=== PATIENT | female | born 1970 | race Caucasian/White ===

== ENCOUNTER → 2021-01-28 13:09 | Outpatient (CLI) | payer OTHER, SELFPAY ==
--- NOTE | 2021-01-28 | DI.MG.S_ITS ---
BILATERAL DIGITAL SCREENING MAMMOGRAM 3D/2D WITH CAD: 01/28/2021 CLINICAL: Routine screening. Comparison is made to exams dated: 09/24/2017 mammogram and 06/18/2019 mammogram - [facility]. The tissue of both breasts is heterogeneously dense. This may lower the sensitivity of mammography. Current study was also evaluated with a Computer Aided Detection (CAD) system. No significant masses, calcifications, or other findings are seen in either breast. There has been no significant interval change. IMPRESSION: NEGATIVE There is no mammographic evidence of malignancy. A 1 year screening mammogram is recommended. This exam was interpreted at Station ID: [id number]. NOTE: For mammograms, a report in lay terms will be sent to the patient. Approximately 15% of breast malignancies will not be visualized mammographically. In the management of a palpable breast mass, a negative mammogram must not discourage biopsy of a clinically suspicious lesion. Electronically Signed By: Ramin Cao M.D. at/greg:01/30/2021 07:47:42 letter sent: Normal Exam ACR BI-RADS Category 1: Negative 3341F
== END ==
PROVIDERS: PCP Family Medicine; Referring Provider Family Medicine; Visit Provider Family Medicine
DX: Z12.31 Encounter for screening mammogram for malignant neoplasm of breast (principal)
CPT/HCPCS: 77063; 77067

== ENCOUNTER 2022-10-06 09:59 | Emergency (ER) | payer OTHER, SELFPAY ==
[2022-10-06 10:19] VITALS: BP 131/81; PULSE 79; RESP 20; TEMP 37.1; O2SAT 97; BMI 15.5
--- NOTE | 2022-10-06 10:35 | ED.URI ---
HPI - URI/Sore Throat General Chief Complaint: Upper Respiratory Symptoms Stated Complaint: sore throat x1 day Time Seen by Provider: 10/06/22 10:08 Source: patient and family Mode of arrival: Family Vehicle History of Present Illness HPI Narrative: Patient is a healthy 52-year-old female who presents with sore throat ongoing for 1-2 days. She denies fever chills body aches or cough. No other symptoms Review of Systems Review of Systems Narrative: GENERAL: Denies chills,fever HEENT: See HPI RESPIRATORY: Denies dyspnea, cough, wheezing CARDIOVASCULAR: Denies chest pain, palpitations GASTROINTESTINAL: Denies nausea, vomiting MUSCULOSKELETAL: Denies extremity pain, injury SKIN: No rash, no laceration, no pruritus NEUROLOGIC: Denies weakness, dizziness, headache, numbness 8 point review of systems is negative except for those stated above and HPI Patient History Social History Smoking Status: Never smoker Smoking Status: Never smoker alcohol intake frequency: 0-2 drinks per day Substance Use Type: does not use Exam Initial Vital Signs Initial Vital Signs: Vital Signs Temperature 98.8 F 10/06/22 10:19 Pulse Rate 79 10/06/22 10:19 Respiratory Rate 20 10/06/22 10:19 Blood Pressure 131/81 10/06/22 10:19 Pulse Oximetry 97 10/06/22 10:19 Oxygen Delivery Method 10/06/22 10:19 GENERAL: Alert 52-year-old female and in no acute distress. HEENT: Head atraumatic,EOMI, pupils reactive, face symmetric, moist mucous membranes PHARYNX: Minimally erythematous no uvula deviation no tonsillar exudate no cervical lymphadenopathy CARDIOVASCULAR: Regular rate and rhythm without murmurs, rubs or gallops. RESPIRATORY: Breath sounds equal bilaterally, no wheezes rales or rhonchi. ABDOMEN: Soft, nontender. Normoactive bowel sounds all 4 quadrants. No guarding or rebound. EXTREMITIES: Normal range of motion, no clubbing or edema. Neurovascularly intact NEUROLOGICAL: Alert and oriented x4. SKIN: Warm, dry, no laceration, no petechiae, no rashes or lesions. Course Orders Ordered: ED Orders 10/06/22 10:34 COVID19 -Nasal RAPID/Pre-Proc Stat Vital Signs Vital signs: Vital Signs - 8 hr 10/06/22 10:19 Temperature 98.8 F Pulse Rate 79 Respiratory Rate 20 Blood Pressure 131/81 Pulse Oximetry 97 Oxygen Delivery Method Room Air MDM - URI/Sore Throat Lab Data Labs: Lab Results 10/06/22 Range/Units 10:34 SARS-CoV-2 (PCR) Negative (Negative) Point of Care Testing Rapid Strep A Negative MDM Narrative Medical decision making narrative: The patient overall appears well. Negative strep negative COVID although it still might be early. Supportive care only no further workup indicated at this time. Discharge Plan Departure Patient Disposition: Home Clinical Impression: Upper respiratory infection Instructions: DI for Viral Upper Respiratory Infection -- Adult Activity Restrictions/Additional Instructions: *You have been diagnosed with upper respiratory infection *What to do: Your COVID and strep test are negative. At this time no need for antibiotics. Please monitor for other new or worsening symptoms *Continue to take medications as directed Motrin 600 mg every 6 hours if needed for [id number]-[id number] pain Tylenol 650 mg every 4-6 hours if needed for afay-ei-yyoawnjm pain *Follow up with your primary care provider in 2-3 days or call [phone] *Return to ER if you should have increasing weakness [or] any new, worsening or concerning symptoms Referrals: Raimn Conde MD [Primary Care Provider] - Visit Report Forms: Patient Portal/API
[2022-10-06 11:11] LABS: COVID19 -Nasal RAPID Negative (Negative)
== END 2022-10-06 12:32 | disposition home or self-care (01) ==
PROVIDERS: Emergency Provider Emergency Medicine; PCP Family Medicine
DX: J06.9 Acute upper respiratory infection, unspecified (principal); Z20.822 Contact with and (suspected) exposure to COVID-19
CPT/HCPCS: 87635; 87880; 99282; C9803

== ENCOUNTER 2024-06-10 14:11 | Emergency (ER) | payer OTHER, SELFPAY ==
[2024-06-10 14:15] VITALS: BP 155/92; PULSE 74; RESP 18; TEMP 36.6; O2SAT 100; BMI 20.9
[2024-06-10 14:19] VITALS: BP 155/92; PULSE 71; O2SAT 100
--- NOTE | 2024-06-10 14:28 | ED.DIZZY ---
HPI - Dizziness General Chief Complaint: Dizziness Stated Complaint: Dizzy Time Seen by Provider: 06/10/24 14:13 Source: patient and family Mode of arrival: EMS History of Present Illness HPI Narrative: 53-year-old healthy female presents today with dizziness. She does report that she has had vertigo in the past. In fact she feels a little dizzy and a little short of breath for last couple of weeks. However today she felt like she was going to black out and pass out and she was all alone. This scared her and she called 911. She did not pass out. She did have some tingling in her extremities but no significant weakness. She reports that the dizziness is only when she stands. It sounds as though previous doctor has done an Polly maneuver on her and it has helped. She is also complaining of some shortness of breath worse with exertion. But she denies any fever. She has not had any recent travel. She reports that she is quite active. She is denying any chest pain or palpitations. No other symptoms Related Data Previous Rx's Medication Instructions Recorded meclizine 25 mg tablet 25 mg PO TID PRN dizziness #10 tabs 06/10/24 ondansetron 4 mg disintegrating 4 mg PO Q8H PRN nausea and 06/10/24 tablet vomiting #10 tabs Allergies Allergy/AdvReac Type Severity Reaction Status Date / Time No Known Drug Allergies Allergy Verified 06/10/24 14:21 Patient History Social History Smoking Status: Never smoker Smoking Status: Never smoker alcohol intake frequency: 0-2 drinks per day Substance Use Type: does not use Exam Initial Vital Signs Initial Vital Signs: Vital Signs Temperature 98 F 06/10/24 14:15 Pulse Rate 74 06/10/24 14:15 Respiratory Rate 18 06/10/24 14:15 Blood Pressure 155/92 H 06/10/24 14:15 Pulse Oximetry 100 06/10/24 14:15 Oxygen Delivery Method Room Air 06/10/24 14:15 GENERAL: Alert pleasant 53-year-old female slightly tearful and in no acute distress. HEENT: Head atraumatic,EOMI, pupils reactive, face symmetric, moist mucous membranes CARDIOVASCULAR: Regular rate and rhythm without murmurs, rubs or gallops. RESPIRATORY: Breath sounds equal bilaterally, no wheezes rales or rhonchi. ABDOMEN: Soft, nontender. Normoactive bowel sounds all 4 quadrants. No guarding or rebound. EXTREMITIES: Normal range of motion, no clubbing or edema. Neurovascularly intact NEUROLOGICAL: Alert and oriented x4.Normal gait and speech. Cranial nerves II through XII grossly intact. Good soqesl-qd-tfeo, good glgk-vu-sxis, strength equal bilaterally, no dysarthria or aphasia, sensation in tact to soft touch bilaterally, no visual changes, no facial droop SKIN: Warm, dry, no laceration, no petechiae, no rashes or lesions. Scores NIH Stroke Scale Level of Conciousness: Alert, keenly responsive Ask month/age: Answers both questions correctly. Open/close eyes, close hand: Performs both tasks correctly Best gaze horizontal: Normal Visual montero: No visual loss Facial palsy: Normal symetrical movement Left arm drift: No drift for full 10 sec Right arm drift: No drift for full 10 sec Left leg drift: No drift for full 5 sec Right leg drift: No drift for full 5 sec Limb ataxia: Absent Sensory on face/arms/legs: Normal, no sensory loss Best language: No aphasia, normal Dysarthria: Normal Extinction or inattention: No abnormality Total NIH Stroke scale score: 0 Course Orders Ordered: ED Orders 06/10/24 14:25 Complete Blood Count AUTO DIFF Stat Comprehensive Metabolic Panel Stat D Dimer Stat Lipase Stat Magnesium Stat NT-proBNP (BNP-Adult 18+) Stat PTT Partial Thromboplastin John Stat Prothrombin Time INR Stat Troponin & CK Cardiac Panel Stat 06/10/24 14:29 XR chest 1V Stat EKG-12 Lead Stat Discontinued Medications Sodium Chloride (Normal Saline 0.9%) 1,000 mls @ 1,000 mls/hr IV BOLUS ONE Stop: 06/10/24 15:37 Last Infusion: 06/10/24 15:51 Dose: Infused Documented By: Admin: 06/10/24 14:45 Dose: 1,000 mls/hr Documented By: BS Meclizine HCl (Meclizine Hcl 12.5 Mg Tablet) 25 mg PO NOW ONE Stop: 06/10/24 14:39 Last Admin: 06/10/24 14:45 Dose: 25 mg Documented By: NIA Vital Signs Vital signs: Vital Signs - 8 hr 06/10/24 14:15 06/10/24 14:19 06/10/24 14:19 Temperature 98 F Pulse Rate 74 71 Respiratory Rate 18 Blood Pressure 155/92 H 155/92 H Pulse Oximetry 100 100 Oxygen Delivery Method Room Air 06/10/24 14:30 06/10/24 14:30 06/10/24 15:00 Temperature Pulse Rate 70 Respiratory Rate Blood Pressure 141/78 H 144/95 H Pulse Oximetry 99 Oxygen Delivery Method 06/10/24 15:00 06/10/24 15:13 06/10/24 15:13 Temperature Pulse Rate 74 68 Respiratory Rate Blood Pressure 144/87 H Pulse Oximetry 99 98 Oxygen Delivery Method 06/10/24 15:30 Temperature Pulse Rate 72 Respiratory Rate Blood Pressure Pulse Oximetry 98 Oxygen Delivery Method MDM - Dizziness Lab Data 06/10/24 14:25 06/10/24 14:25 Labs: Lab Results 06/10/24 Range/Units 14:25 WBC 5.6 (4.5-11.0) X10^3/uL RBC 4.04 (4.0-5.2) X10^6/uL Hgb 12.4 (12.0-16.0) g/dL Hct 36.5 (36-46) % MCV 90.5 (80-100) fL MCH 30.8 (26-34) PG MCHC 34.0 (30-36) % RDW 12.0 (11.6-14.8) % Plt Count 197 (150-400) X10^3/uL Neut % (Auto) 54.7 (50-75) % Lymph % (Auto) 34.8 (25-40) % [place] % (Auto) 6.8 (3-14) % Eos % (Auto) 2.5 (2-4) % Baso % (Auto) 1.2 (0-2) % Neut # (Auto) 3000 (2578-2735) /uL Lymph # (Auto) 1900 (1322-1999) /uL [place] # (Auto) 400 (0-900) /uL Eos # (Auto) 100 (0-450) /uL Baso # (Auto) 100 (0-100) /uL PT 10.0 (9.4-12.5) SECONDS INR 0.9 (0.9-1.3) APTT 39 H (25.1-36.5) SECONDS D-Dimer < 215 (<500) ng/ml Sodium 140 (137-145) mmol/L Potassium 3.8 (3.4-5.1) mmol/L Chloride 109 H (98-107) mmol/L Carbon Dioxide 22 (22-32) mmol/L BUN 17 (7-17) mg/dL Creatinine 0.77 (0.52-1.04) mg/dL Estimated GFR > 60 (>60) mL/min BUN/Creatinine Ratio 22.1 H (6-22) Glucose 122 H (70-100) mg/dL Calcium 9.3 (8.4-10.2) mg/dL Magnesium 2.1 (1.6-2.3) mg/dL Total Bilirubin 0.4 (0.2-1.3) mg/dL AST 54 H (14-36) IU/L ALT 74 H (<35) IU/L Alkaline Phosphatase 120 (38-126) U/L Total Creatine Kinase 87 (30-135) U/L Troponin I < 0.012 (0.01-0.034) ng/mL NT-Pro-B Natriuret Pep 45 (<125) pg/mL Total Protein 7.9 (6.3-8.2) g/dL Albumin 4.9 (3.5-5.0) g/dL Globulin 3.0 (1.7-4.1) g/dL Albumin/Globulin Ratio 1.6 (1.0-2.8) Lipase 190 (23-300) U/L Urine Dip Bedside Urine Glucose Negative Bedside Urine Bilirubin - Negative Bedside Urine Ketone - Negative Urine Specific Helper 1.015 Bedside Urine Occult Blood - Negative Bedside Urine pH 6.0 Bedside Urine Protein - Negative Bedside Urine Urobilinogen - Negative Bedside Urine Nitrite - Negative Bedside Urine Leukocytes - Negative Esterase Imaging Data Chest x-ray: Radiologist's Impression: PROCEDURE: XR CHEST 1V INDICATIONS: chest pain TECHNIQUE: One view of the chest was acquired. COMPARISON: None. FINDINGS: Surgical changes and devices: None. Lungs and pleura: Lungs are clear. No pleural effusions or pneumothorax. Mediastinum: Mediastinal contours appear normal. Heart size is normal. Bones and chest wall: No suspicious bony lesions. Overlying soft tissues appear unremarkable. IMPRESSION: No acute cardiopulmonary pathology. Dictated by: Aguilar Peoples M.D. on 06/10/2024 at 14:49 Approved by: Aguilar Peoples M.D. on 06/10/2024 at 14:49 ECG Data Attestation: I personally reviewed and interpreted this ECG as follows: Interpretation: Sinus rhythm rate 75 IL interval 156 QRS [address] changes MDM Narrative Medical decision making narrative: Patient 53-year-old female history of vertigo presents today with vertigo and almost syncopal episode. She has been having vertigo ongoing for the last 2 weeks worse today. Previous Polly maneuver has work. However sitting here upright she has no problems no nausea or vomiting. 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 She has no focal deficits or weakness. Blood work has been reviewed overall reassuring BNP is negative D-dimer is negative EKG reviewed as above Chest x-ray has been reviewed no acute cardiopulmonary process Patient overall appears comfortable here in the ED. She is able to sit up she ambulated to the restroom. She has a history of vertigo I suspect vertigo again. She was given meclizine in his overall feeling better. She was having some shortness of breath but no evidence of pneumonia or infection on chest x-ray. BNP and D-dimer negative. Possible viral syndrome but she denies having a fever or cough. At this time no need for antibiotics. She has feeling a bit better. Discussion of strict return precautions and family in room YEARS Algorithm for Pulmonary Embolism (PE) from [employer] on 06/10/2024 All calculations should be rechecked by clinician prior to use RESULT SUMMARY: PE excluded YEARS algorithm rules out PE (0.43% with symptomatic VTE during 3-month follow-up) INPUTS: patient ?> 0 = No Clinical signs of DVT ?> 0 = No Hemoptysis ?> 0 = No PE most likely diagnosis ?> 0 = No D-dimer >=,000 ng/mL ?> 0 = No Discharge Plan Departure Patient Disposition: Home Clinical Impression: Vertigo Instructions: DI for Vertigo Activity Restrictions/Additional Instructions: *You have been diagnosed with vertigo *What to do: At this time increase activity as tolerated stay hydrated *Continue to take medications as directed Meclizine 25 mg every 8 hours if needed for dizziness Zofran 4 mg every 8 hours if needed for nausea or vomiting *Follow up with your primary care provider in 2-3 days or call [phone] *Return to ER if you should have increasing dizziness lightheadedness or weakness or any new, worsening or concerning symptoms Prescriptions: New meclizine 25 mg tablet 25 mg PO TID PRN (Reason: dizziness) Qty: 10 0RF ondansetron 4 mg tablet,disintegrating 4 mg PO Q8H PRN (Reason: nausea and vomiting) Qty: 10 0RF Referrals: Ramin Conde MD [Primary Care Provider] - Stand Alone Forms: Patient Portal/API
[2024-06-10 14:30] VITALS: BP 141/78; PULSE 70; O2SAT 99
--- NOTE | 2024-06-10 14:34 | EKG_ITS ---
[address] [address] Test Date: 2024-06-10 Pat Name: Magdalena Beasley Department: Room: Gender: Female [facility] Worker: FREID : [id number] Requested By: Order Number: [id number] Reading MD: Sukumar Andrade MD Measurements Intervals [place] Rate: 75 P: 50 UT: 156 QRS: -57 QRSD: 96 T: 39 QT: 418 QTc: 466 Interpretive Statements Normal sinus rhythm Left axis deviation Incomplete right bundle branch block NO PRIOR TRACING Electronically Signed On 06-11-2024 7:53:01 PDT by Sukumar Andrade MD
[2024-06-10 14:40] LABS: Add Manual Diff / Slide Review NO; Basophils Absolute Auto 100 /uL (0-100); Basophils Percent Auto 1.2 % (0-2); Eosinophils Absolute Auto 100 /uL (0-450); Eosinophils Percent Auto 2.5 % (2-4); Hematocrit 36.5 % (36-46); Hemoglobin 12.4 g/dL (12.0-16.0); Lymphocytes Absolute Auto 1900 /uL (1100-4500); Lymphocytes Percent Auto 34.8 % (25-40); Mean Corpuscular Hemoglobin 30.8 PG (26-34); Mean Corpuscular Volume 90.5 fL (80-100); Monocytes Absolute Auto 400 /uL (0-900); Monocytes Percent Auto 6.8 % (3-14); Neutrophils Absolute Auto 3000 /uL (1500-7000); Neutrophils Percent Auto 54.7 % (50-75); Platelet Count 197 X10^3/uL (150-400); Red Blood Cell Count 4.04 X10^6/uL (4.0-5.2); White Blood Cell Count 5.6 X10^3/uL (4.5-11.0)
[2024-06-10 14:42] LABS: INR 0.9 (0.9-1.3)
[2024-06-10 14:44] LABS: PTT Partial Thromboplastin Tim 39 SECONDS (25.1-36.5)
[2024-06-10] MEDS: SODIUM CHLORIDE 0.9% 1,000 ML 1000 ML IV (14:45)
[2024-06-10] MEDS: MECLIZINE HCL 12.5 MG TABLET 25 MG PO (14:45)
[2024-06-10 14:47] LABS: Alanine Aminotransferase 74 IU/L (<35); Albumin 4.9 g/dL (3.5-5.0); Albumin Globulin Ratio 1.6 (1.0-2.8); Alkaline Phosphatase 120 U/L (38-126); Aspartate Aminotransferase 54 IU/L (14-36); BUN Creatinine Ratio 22.1 (6-22); Bilirubin Total 0.4 mg/dL (0.2-1.3); Blood Urea Nitrogen 17 mg/dL (7-17); Calcium 9.3 mg/dL (8.4-10.2); Carbon Dioxide 22 mmol/L (22-32); Chloride 109 mmol/L (98-107); Creatine Kinase 87 U/L (30-135); Estimated Glomerular Filt Rate > 60 mL/min (>60); Glucose 122 mg/dL (70-100); HEMOLYSIS < 15 (0-50); Lipase 190 U/L (23-300); Magnesium 2.1 mg/dL (1.6-2.3); Potassium 3.8 mmol/L (3.4-5.1); Sodium 140 mmol/L (137-145); Total Protein 7.9 g/dL (6.3-8.2)
[2024-06-10 14:58] LABS: NT-proBNP (BNP-Adult 18+) 45 pg/mL (<125); Troponin I < 0.012 ng/mL (0.01-0.034)
[2024-06-10 15:00] VITALS: BP 144/95; PULSE 74; O2SAT 99
[2024-06-10 15:13] VITALS: BP 144/87; PULSE 68; O2SAT 98
--- NOTE | 2024-06-10 15:13 | PC.NURSE ---
Pt ambulated well to the bathroom with no complaints of dizziness. Pt reports she feels back to her baseline.
[2024-06-10 15:30] VITALS: PULSE 72; O2SAT 98
[2024-06-10 15:47] LABS: D Dimer < 215 ng/ml (<500)
== END 2024-06-10 15:56 | disposition home or self-care (01) ==
PROVIDERS: Emergency Provider Emergency Medicine; PCP Family Medicine
DX: R42 Dizziness and giddiness (principal); R06.02 Shortness of breath; R55 Syncope and collapse
CPT/HCPCS: 36415; 71045; 80053; 81003; 82550; 83690; 83735; 83880; 84484; 85025; 85379; 85610; 85730; 93005; 99284